=== PATIENT | male | born 1990 | race African-American/Black ===

== ENCOUNTER 2020-02-17 19:13 | Inpatient (IN) | payer MEDICARE ==
[~2020-02-17] VITALS: Ht 182.9 cm; Wt 83.6 kg
[2020-02-17] VITALS (7 sets, daily range): BP systolic 76–109; BP diastolic 47–62
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
--- NOTE | 2020-02-17 19:38 | NUR ---
1 ST UNIT OF O NEG BLOOD COMPLETED
--- NOTE | 2020-02-17 19:42 | NUR ---
SECOND UNIT OF O NEG BLOOD COMPLETED AT THIS TIME
--- NOTE | 2020-02-17 19:43 | NUR ---
PT TAKEN TO OR AT THIS TIME
[2020-02-17 21:07] LABS: UDS - AMPHET NEGATIVE QUAL (NEGATIVE); UDS - BARB NEGATIVE QUAL (NEGATIVE); UDS - BENZO NEGATIVE QUAL (NEGATIVE); UDS - COCAINE NEGATIVE QUAL (NEGATIVE); UDS - OPIATE NEGATIVE QUAL (NEGATIVE); UDS - PCP NEGATIVE QUAL (NEGATIVE); UDS - THC POSITIVE QUAL (NEGATIVE)
--- NOTE | 2020-02-17 23:33 | NUR ---
2333: XRAYS TAKEN TO CONFIRM INSTRAMENT COUNTS
[2020-02-18] VITALS (25 sets, daily range): BP systolic 95–145; BP diastolic 61–108; BMI 23.8; BMI 24.1
--- NOTE | 2020-02-18 | NUR ---
PT ARRIVED ON UNIT VIA BED, HOOKED TO MONITORS, ASSESSMENT COMPLETE, SEE FLOW SHEET, ALL PPP, VSS, WILL CON'T TO MONITOR
--- NOTE | 2020-02-18 00:14 | NUR ---
DR. MCKEON AT BEDSIDE, NEW ORDERS RECIEVED,
--- NOTE | 2020-02-18 01:07 | NUR ---
SISTER MO AT BEDSIDE, UPDATE GIVEN
[2020-02-18 04:21] LABS: BASOPHILS 0 % (0-2); EOSINOPHILS 0 % (0-7); HEMATOCRIT 44.6 % (42.0-54.0); IMMATURE GRANULOCYTES 0.2 % (0-5); MCH 30.4 pg (26.0-34.0); MCHC 33.6 g/dL (31.0-37.0); MCV 90.3 fL (80.0-100.0); MEAN PLATELET VOLUME 8.9 fL (7.4-10.4); MONOCYTES 12.1 % (2-11); NEUTROPHILS 81.7 % (40-80); PLATELET COUNT 168 10x3/uL (130-400); RBC 4.94 10x6/uL (4.20-6.10); RDW 13.9 % (11.5-14.5); WBC 12.2 10x3/uL (4.8-10.8)
[2020-02-18 04:36] LABS: CALC OSMOLALITY 291 mosm/kg (275-300); CALCIUM 7.7 mg/dL (8.5-10.1); CARBON DIOXIDE 31.2 mmol/L (21.0-32.0); CHLORIDE - SERUM 108 mmol/L (98-107); CREATININE - SERUM 1.1 mg/dL (0.6-1.3); GLUCOSE 115 mg/dL (74-106); POTASSIUM - SERUM 3.9 mmol/L (3.5-5.1); SODIUM 146 mmol/L (136-145); UREA NITROGEN 12 mg/dL (7-18); eGFR NON AFRICAN AMERICAN 84 mL/min (90-120)
[2020-02-19] VITALS (24 sets, daily range): BP systolic 86–128; BP diastolic 54–77; Ht 182.9 cm; Wt 83.6 kg
[2020-02-19 04:36] LABS: BASOPHILS 0.3 % (0-2); EOSINOPHILS 0.9 % (0-7); HEMATOCRIT 40.4 % (42.0-54.0); HEMOGLOBIN 13.4 g/dL (13.5-17.5); IMMATURE GRANULOCYTES 0.3 % (0-5); LYMPHOCYTES 14.5 % (15-50); MCH 30.7 pg (26.0-34.0); MCHC 33.2 g/dL (31.0-37.0); MEAN PLATELET VOLUME 9.4 fL (7.4-10.4); MONOCYTES 9.6 % (2-11); NEUTROPHILS 74.4 % (40-80); PLATELET COUNT 142 10x3/uL (130-400); RBC 4.36 10x6/uL (4.20-6.10); RDW 14.6 % (11.5-14.5); WBC 11.8 10x3/uL (4.8-10.8)
[2020-02-19 04:59] LABS: MCV 92.7 fL (80.0-100.0)
[2020-02-19 06:26] LABS: ALBUMIN 2.1 g/dL (3.4-5.0); ANION GAP 12.1 mmol/L (8-16); BILIRUBIN - TOTAL 1.17 mg/dL (0.2-1.3); CARBON DIOXIDE 26.5 mmol/L (21.0-32.0); MAGNESIUM - SERUM 1.6 mg/dL (1.8-2.4); POTASSIUM - SERUM 3.6 mmol/L (3.5-5.1); PROTEIN - SERUM 5.3 g/dL (6.4-8.2)
[2020-02-19 06:36] LABS: CREATININE - SERUM 1.5 mg/dL (0.6-1.3)
[2020-02-19 06:37] LABS: PHOSPHOROUS 1.5 mg/dL (2.5-4.9)
--- NOTE | 2020-02-19 07:42 | NUR ---
INITIATED MAG IVPB PER ELECTROLYTE REPLACEMENT PROTOCOL. PT WILL ALSO NEED PHOSPHOROUS CALLED LAB TO MAKE. SCDS IN PLACE AND TURNED ON. PT IS WARM AND HAS A TEMP OF 100.4 WILL CHECK FOR ANY TYLENOL AND TRY TO COOL PT OFF.
--- NOTE | 2020-02-19 07:45 | NUR ---
BEDSHIFT REPORTING COMPLETED. INTRODUCED MYSELF TO PT PRIMARY RN FOR TODAYS SHIFT. PT IS AWAKE WITH EYES WIDE OPEN BUT ON VENT AND IN WRIST RESTRAINTS. REASSURED PT THAT HE IS OKAY AND MY PLAN OF CARE WITH HIM TODAY ALONG WITH REASONING FOR ALL HIS TUBES/LINES. PT IS CALM AND COOPERATIVE. WILL REVIEW LABS, CHART AND ORDERS AND CPOC. NO IMMEDIATE NEEDS NOTED AT THIS TIME.
--- NOTE | 2020-02-19 09:00 | NUR ---
PT IN/OUT BEING AWAKE. SEDATION PER ORDERS. REPOSITIONED PT IN BED. VSS AND STILL BEING MONITERED. PTS FATHER CALLED AND WAS UPDATED. NO IMMEDIATE NEEDS NOTED AT THIS TIME. RESPIRATORY AT BEDSIDE FOR ORAL CARE. WILL CPOC.
--- NOTE | 2020-02-19 11:06 | NUR ---
PT AWAKE AND BECOMING AGITATED. PUSHING HIS FEET IN BED AND MAKING HIS COVERS FALL OFF. PT WILL COMMUNICATE WITH ME BY GESTURES BUT UNABLE TO GET OUT WHAT HE NEEDS OR WHY HE IS MOVING SO MUCH. INCREASED PROPOFOL DRIP BY 5MCG AND NOW ITS MAXED OUT. SUCTIONED SOME BLOODY THICK SPUTUM FROM MOUTH. REPOSITIONED PT IN BED. PT FALLING BACK ASLEEP. WILL CONTINUE TO MONITER.
--- NOTE | 2020-02-19 13:35 | NUR ---
PT IS NOW FEBRILE DESPITE ICE PACKS APPLIED. DISCUSSED WITH AT BEDSIDE AND CULTURES ARE BEING ORDERED ALONG WITH TYLENOL TO HELP REDUCE FEVER. PT AWAKE WITH EYES OPEN AND FIDGETING HIS LEGS ALL AROUND. EXPLAINED TO PT THE SITUATION AND HAD HIM KEEP HIS LEGS STILL. NO IMMEDIATE NEEDS NOTED A THIS TIME. WILL CTM.
--- NOTE | 2020-02-19 14:08 | NUR ---
OGT SUCTION TURNED OFF AFTER TYLENOL TREATMENT WILL RESUME IN 30MINS. PROVIDED PT WITH PRN DOSE OF VERSED HE IS STILL WIDE AWAKE AND CONSTANTLY MOVING KICKING HIS LEGS. PTS TEMP ALREADY DECREASING AND DOWN TO 100.2F. UPDATED PTS FATHER ON CONDITION. STILL AWAITING FOR CONSULT. PT RESTING QUIETLY IN BED WITH EYES CLOSED NOW. VSS AND BEING MONITERED. NO IMMEDIATE NEEDS NOTED AT THIS TIME. WILL CTM.
--- NOTE | 2020-02-19 16:09 | NUR ---
PTS REDRAW PHOS STILL SLIGHTLY LOW. ORDERED ANOTHER REPLACEMENT BAG PER ELECTROLYTE PROTOCOL AND WILL RECHECK VALUE IN THE AM.
--- NOTE | 2020-02-19 16:43 | NUR ---
FAMILY CALLED AGAIN REQUESTING UPDATE ABOUT ' PLAN. STILL WAITING ON HIM TO COME BY FOR CONSULT. WILL CPOC.
--- NOTE | 2020-02-19 17:45 | NUR ---
PAGED REGARDING PLAN OF CARE AND HE STATES NO NEED FOR SURGERY BULLET CAN REMAIN THERE. WILL UPDATE FAMILY AND NOTIFY PULMONOLOGY TO DISCUSS WEANING SEDATION FOR POSSIBLE EXTUBATION.
--- NOTE | 2020-02-19 18:22 | NUR ---
FENTANYL DRIP DOWN TO 250MCG/HR, PROPOFOL DRIP WEANED DOWN TO 65MCG/KG/MIN. PT IS SEDATED BUT AROUSES EASILY. VSS. NO IMMEDIATE NEEDS NOTED AT THIS TIME. WILL CPOC.
[2020-02-20] VITALS (24 sets, daily range): BP systolic 101–160; BP diastolic 64–96
[2020-02-20 04:09] LABS: BASOPHILS 0.1 % (0-2); EOSINOPHILS 1.7 % (0-7); HEMATOCRIT 33.8 % (42.0-54.0); HEMOGLOBIN 10.9 g/dL (13.5-17.5); IMMATURE GRANULOCYTES 0.1 % (0-5); LYMPHOCYTES 8.2 % (15-50); MCH 30.3 pg (26.0-34.0); MCHC 32.2 g/dL (31.0-37.0); MCV 93.9 fL (80.0-100.0); MEAN PLATELET VOLUME 8.9 fL (7.4-10.4); MONOCYTES 9.7 % (2-11); NEUTROPHILS 80.2 % (40-80); PLATELET COUNT 117 10x3/uL (130-400); RDW 14.1 % (11.5-14.5); WBC 10.9 10x3/uL (4.8-10.8)
[2020-02-20 04:24] LABS: CALC OSMOLALITY 281 mosm/kg (275-300); CALCIUM 6.9 mg/dL (8.5-10.1); CARBON DIOXIDE 24.5 mmol/L (21.0-32.0); CHLORIDE - SERUM 109 mmol/L (98-107); GLUCOSE 95 mg/dL (74-106); POTASSIUM - SERUM 3.3 mmol/L (3.5-5.1); SODIUM 142 mmol/L (136-145); UREA NITROGEN 9 mg/dL (7-18); eGFR NON AFRICAN AMERICAN > 90 mL/min (90-120)
--- NOTE | 2020-02-20 09:00 | NUR ---
UPDATED FATHER ON PHONE.
--- NOTE | 2020-02-20 12:30 | NUR ---
DR VILLAREAL HERE STOP DIPRIVAN START PRECEDEX. PT HR 145, BP 180/110. NOTIFIED DR VILLAREAL, PRECEDEX STOPPED AND PLACED BACK ON DIPRAVAN.
--- NOTE | 2020-02-20 13:30 | NUR ---
UPDATED SISTER ON CONDITION.
--- NOTE | 2020-02-20 14:00 | NUR ---
UPDATED FATHER ON CONDITION.
[2020-02-21] VITALS (24 sets, daily range): BP systolic 87–150; BP diastolic 47–999
--- NOTE | 2020-02-21 03:15 | NUR ---
PT FEBRILE AT BEGINNING OF SHIFT (02/19) IV FLUIDS CHILLED AND APAP GIVEN PER ORDERS. FEBRILE AGAIN NOW, CHILLED FLUIDS AGAIN AND PLACED ICE PACKS. WILL MONITOR.
[2020-02-21 05:49] LABS: BASOPHILS 0.1 % (0-2); EOSINOPHILS 3.4 % (0-7); HEMATOCRIT 31.7 % (42.0-54.0); HEMOGLOBIN 10.4 g/dL (13.5-17.5); IMMATURE GRANULOCYTES 0.3 % (0-5); LYMPHOCYTES 12.3 % (15-50); MCH 30.3 pg (26.0-34.0); MCHC 32.8 g/dL (31.0-37.0); MCV 92.4 fL (80.0-100.0); MEAN PLATELET VOLUME 9.7 fL (7.4-10.4); MONOCYTES 12.1 % (2-11); NEUTROPHILS 71.8 % (40-80); RBC 3.43 10x6/uL (4.20-6.10); RDW 13.8 % (11.5-14.5); WBC 10.1 10x3/uL (4.8-10.8)
[2020-02-21 05:50] LABS: CALC OSMOLALITY 275 mosm/kg (275-300); CALCIUM 7.6 mg/dL (8.5-10.1); CARBON DIOXIDE 25.1 mmol/L (21.0-32.0); CHLORIDE - SERUM 106 mmol/L (98-107); CREATININE - SERUM 0.8 mg/dL (0.6-1.3); GLUCOSE 94 mg/dL (74-106); POTASSIUM - SERUM 3.3 mmol/L (3.5-5.1); SODIUM 139 mmol/L (136-145); eGFR NON AFRICAN AMERICAN > 90 mL/min (90-120)
[2020-02-21 05:52] LABS: PLATELET COUNT 164 10x3/uL (130-400)
[2020-02-21 05:53] LABS: PHOSPHOROUS 1.5 mg/dL (2.5-4.9); UREA NITROGEN 6 mg/dL (7-18)
--- NOTE | 2020-02-21 10:05 | NUR ---
Nutrition follow-up: Intubated, sedated NPO x 5 days Propofol @ 31.2 ml/hr Wt: 188# No surgery per Dr. Quinn Recommend tube feeding of Pulmocare @ goal rate of 50 ml/hr RDN following.
--- NOTE | 2020-02-21 19:50 | NUR ---
PT SISTER CALLED, PASSWORD PROVIDED, UPDATE GIVEN.
[2020-02-22] VITALS (24 sets, daily range): BP systolic 86–157; BP diastolic 51–118
--- NOTE | 2020-02-22 | NUR ---
INFORMED PT'S NURSE DAVID RN OF [facility]
--- NOTE | 2020-02-22 00:34 | NUR ---
PT SISTER CALLED, PASSWORD PROVIDED, UPDATE GIVEN.
--- NOTE | 2020-02-22 06:11 | NUR ---
PULMOCARE INITIATED AT 10CC/HR PER MD ORDER.
[2020-02-22 06:22] LABS: CALC OSMOLALITY 275 mosm/kg (275-300); CALCIUM 7.7 mg/dL (8.5-10.1); CHLORIDE - SERUM 107 mmol/L (98-107); CREATININE - SERUM 0.9 mg/dL (0.6-1.3); GLUCOSE 97 mg/dL (74-106); POTASSIUM - SERUM 3.3 mmol/L (3.5-5.1); SODIUM 139 mmol/L (136-145); UREA NITROGEN 7 mg/dL (7-18); eGFR NON AFRICAN AMERICAN > 90 mL/min (90-120)
--- NOTE | 2020-02-22 08:51 | NUR ---
Nutrition follow-up: Recieved order from Dr. Oleary to start TPN; however, Dr. Galeas started Pulmocare TF @ 10 ml/hr with goal rate of 40 ml/hr. Flush 25 ml q hour Wt: 188# Spoke to POONAM Rodgers re: TPN order. Will clarify with doctor today. RDN following.
--- NOTE | 2020-02-22 09:30 | NUR ---
tf residule 250cc. stopped tf.
--- NOTE | 2020-02-22 15:10 | NUR ---
Nutrition consult: Received consult from Dr. Oleary to start TPN due to pt ont tolerating TF at this time. Chart reviewe Labs reviewed TPN ordered @ 60 ml/hr; pt with propofol RDN following.
--- NOTE | 2020-02-22 21:40 | NUR ---
PT SISTER CALLED, PASSWORD PROVIDED, UPDATE GIVEN.
--- NOTE | 2020-02-22 21:48 | NUR ---
DR MCKEON IN TO SEE PT, UPDATED REGARDING STATUS. NO NEW ORDERS RECEIVED.
[2020-02-23] VITALS (24 sets, daily range): BP systolic 92–130; BP diastolic 5–73
[2020-02-23 05:14] LABS: BASOPHILS 0.1 % (0-2); EOSINOPHILS 3.5 % (0-7); HEMATOCRIT 27.3 % (42.0-54.0); HEMOGLOBIN 8.9 g/dL (13.5-17.5); IMMATURE GRANULOCYTES 0.7 % (0-5); MCHC 32.6 g/dL (31.0-37.0); MCV 91.9 fL (80.0-100.0); MONOCYTES 12.8 % (2-11); NEUTROPHILS 72.9 % (40-80); PLATELET COUNT 234 10x3/uL (130-400); RBC 2.97 10x6/uL (4.20-6.10); RDW 13.5 % (11.5-14.5); WBC 8.6 10x3/uL (4.8-10.8)
[2020-02-23 06:05] LABS: CALC OSMOLALITY 283 mosm/kg (275-300); CALCIUM 7.7 mg/dL (8.5-10.1); CARBON DIOXIDE 25.5 mmol/L (21.0-32.0); CHLORIDE - SERUM 108 mmol/L (98-107); CREATININE - SERUM 0.9 mg/dL (0.6-1.3); GLUCOSE 136 mg/dL (74-106); MAGNESIUM - SERUM 2.1 mg/dL (1.8-2.4); POTASSIUM - SERUM 3.4 mmol/L (3.5-5.1); SODIUM 142 mmol/L (136-145); UREA NITROGEN 9 mg/dL (7-18); eGFR NON AFRICAN AMERICAN > 90 mL/min (90-120)
--- NOTE | 2020-02-23 07:54 | NUR ---
Nutrition follow-up: Chart reviewed TPN @ 60 ml/hr Labs reviewed; PO4 still low and TPN adjusted RDN following.
--- NOTE | 2020-02-23 16:33 | NUR ---
PT BATHED AND LINENS CHANGED. DSNGS TO CT CHANGED.
--- NOTE | 2020-02-23 23:04 | NUR ---
PT SISTER CALLED, PASSWORD PROVIDED, UPDATE GIVEN AND ALL QUESTIONS ANSWERED.
[2020-02-24] VITALS (24 sets, daily range): BP systolic 93–129; BP diastolic 56–108
[2020-02-24 05:45] LABS: BASOPHILS 0.2 % (0-2); EOSINOPHILS 4.5 % (0-7); HEMOGLOBIN 9.5 g/dL (13.5-17.5); IMMATURE GRANULOCYTES 1.9 % (0-5); MCHC 32.8 g/dL (31.0-37.0); MCV 91.5 fL (80.0-100.0); MONOCYTES 13.3 % (2-11); NEUTROPHILS 71.1 % (40-80); RBC 3.17 10x6/uL (4.20-6.10); RDW 13.7 % (11.5-14.5); WBC 9.6 10x3/uL (4.8-10.8)
[2020-02-24 05:52] LABS: PLATELET COUNT 339 10x3/uL (130-400)
[2020-02-24 06:04] LABS: CALC OSMOLALITY 278 mosm/kg (275-300); CALCIUM 7.7 mg/dL (8.5-10.1); CARBON DIOXIDE 26.6 mmol/L (21.0-32.0); CHLORIDE - SERUM 109 mmol/L (98-107); CREATININE - SERUM 0.9 mg/dL (0.6-1.3); GLUCOSE 124 mg/dL (74-106); MAGNESIUM - SERUM 1.9 mg/dL (1.8-2.4); PHOSPHOROUS 3.1 mg/dL (2.5-4.9); POTASSIUM - SERUM 3.5 mmol/L (3.5-5.1); SODIUM 140 mmol/L (136-145); UREA NITROGEN 10 mg/dL (7-18); eGFR NON AFRICAN AMERICAN > 90 mL/min (90-120)
--- NOTE | 2020-02-24 08:12 | NUR ---
Nutrition follow-up: Pt intubated, sedation off Labs reviewed Will continue current TPN @ 60 ml/hr RDN following.
--- NOTE | 2020-02-24 12:02 | NUR ---
REPORT GIVEN TO PACO RN. NURSE ALSO NOTIFIED THAT OGT WAS NOT FUNCTIONING AND WAS UNABLE TO GIVE ROBITUSSIN AT THIS TIME. PATIENT IS IN GOOD STABLE CONDITION OF TIME OF HANDOFF.
[2020-02-25] VITALS (24 sets, daily range): BP systolic 97–139; BP diastolic 49–69
[2020-02-25 05:07] LABS: CALC OSMOLALITY 278 mosm/kg (275-300); CALCIUM 7.9 mg/dL (8.5-10.1); CARBON DIOXIDE 26.6 mmol/L (21.0-32.0); CHLORIDE - SERUM 108 mmol/L (98-107); CREATININE - SERUM 0.8 mg/dL (0.6-1.3); GLUCOSE 120 mg/dL (74-106); MAGNESIUM - SERUM 1.8 mg/dL (1.8-2.4); PHOSPHOROUS 3.4 mg/dL (2.5-4.9); POTASSIUM - SERUM 3.9 mmol/L (3.5-5.1); SODIUM 139 mmol/L (136-145); UREA NITROGEN 12 mg/dL (7-18); eGFR NON AFRICAN AMERICAN > 90 mL/min (90-120)
[2020-02-25 08:11] LABS: HEMATOCRIT 32.4 % (42.0-54.0); HEMOGLOBIN 10.9 g/dL (13.5-17.5); MCH 30.9 pg (26.0-34.0); MCHC 33.6 g/dL (31.0-37.0); MCV 91.8 fL (80.0-100.0); MEAN PLATELET VOLUME 9.8 fL (7.4-10.4); PLATELET COUNT 389 10x3/uL (130-400); RBC 3.53 10x6/uL (4.20-6.10); RDW 13.2 % (11.5-14.5); WBC 14.1 10x3/uL (4.8-10.8)
--- NOTE | 2020-02-25 09:47 | NUR ---
Nutrition follow-up: Chart reviewed Labs reviewed Pt remains intubated, sedated with propofol @ 31.2 ml/hr TPN @ 60 ml/hr Will continue with current TPN formula RDN following.
--- NOTE | 2020-02-25 10:42 | NUR ---
NOTED PTS OGT IS CLOGGED OR KINKED. UNABLE TO FLUSH, UNABLE TO PASS AIR INTO OGT TO ASSESS PLACEMENT. WILL NOTIFY SURGERY.
--- NOTE | 2020-02-25 10:48 | NUR ---
DR CHIN NOTIFIED OF CLOGGED/CLAMPED OGT.
--- NOTE | 2020-02-25 10:51 | NUR ---
PER DR CHIN, THIS IS DR MCKEON'S PT. DR MCKEON PAGED.
--- NOTE | 2020-02-25 11:03 | NUR ---
PER DR MCKEON, OKAY TO PULL AND REPLACE OGT.
--- NOTE | 2020-02-25 11:29 | NUR ---
PT ON CPAP TRIAL, RR 30 TIDAL VOLUME 320. WILL NOTIFY RESPIRATORY THERAPY.
[2020-02-25 11:34] LABS: EOSINOPHILS 2 % (0-7); LYMPHOCYTES 17 % (15-50); MONOCYTES 12 % (2-11); NEUTROPHILS 62 % (40-80); PLATELET ESTIMATE NORMAL
[2020-02-25 11:35] LABS: ANISOCYTOSIS 1+; POLYCHROMASIA OCC
--- NOTE | 2020-02-25 13:16 | NUR ---
AWAKE ON VENT WITH EYES CLOSED, PT FOLLOWING COMMANDS. NOT APPEARING DISTRESSED, HOWEVER RESPIRATIONS STILL 35, TIDAL VOLUME 441. PT ENCOURAGED TO CONTINUE TO BE CALM AND BREATHE. PT NODDED HEAD. VSS. NO ACUTE DISTRESS NOTED. WILL CONTINUE PLAN OF CARE.
--- NOTE | 2020-02-25 13:50 | NUR ---
PT NOTED AGGITATED AT THIS TIME, ATTEMPTING TO PULL AT ETT, KICKING, COUGHING. IN ADDITION RESPIRATIONS STILL IN 30S. BP PER A LINE UP TO 168. PLACED BACK ON SEDATION, CPAP TRIAL CHANGED TO AC ON VENT. PT NOW CALM ON SEDATION. WILL CONTINUE TO OBSERVE.
--- NOTE | 2020-02-25 14:22 | NUR ---
OGT REMOVED AND NEW ONE PLACED, 16F. WILL OBTAIN CHEST XR TO VERIFY PLACEMENT.
--- NOTE | 2020-02-25 14:47 | NUR ---
SPOKE WITH PTS FAMILY. UPDATES PROVIDED.
--- NOTE | 2020-02-25 17:07 | NUR ---
DR MCKEON ROUNDED ON PT, NO NEW ORDERS RECIEVED.
--- NOTE | 2020-02-25 19:50 | NUR ---
FAMILY CALLED AND PROVIDED PT CALL IN CODE, PT UPDATE PROVIDED AND QUESTIONS ANSWERED.
[2020-02-26] VITALS (24 sets, daily range): BP systolic 92–162; BP diastolic 50–93
[2020-02-26 05:20] LABS: CALC OSMOLALITY 279 mosm/kg (275-300); CALCIUM 7.8 mg/dL (8.5-10.1); CARBON DIOXIDE 27.7 mmol/L (21.0-32.0); CHLORIDE - SERUM 105 mmol/L (98-107); CREATININE - SERUM 0.9 mg/dL (0.6-1.3); PHOSPHOROUS 3.9 mg/dL (2.5-4.9); POTASSIUM - SERUM 4.3 mmol/L (3.5-5.1); SODIUM 137 mmol/L (136-145); UREA NITROGEN 12 mg/dL (7-18); eGFR NON AFRICAN AMERICAN > 90 mL/min (90-120)
[2020-02-26 05:42] LABS: GLUCOSE 205 mg/dL (74-106)
--- NOTE | 2020-02-26 06:26 | NUR ---
LINEN CHANGE AND PARTIAL BATH PROVIDED AT THIS TIME
--- NOTE | 2020-02-26 07:00 | NUR ---
REPORT RECEIVED. ASSESSMENT COMPLETE PER FLOW SHEET. VSS. PT RESTING COMFROTABLY WILL CONTINUE TOMONITOR
--- NOTE | 2020-02-26 07:46 | NUR ---
Nutrition follow-up: Chart reviewed Labs reviewed TPN infusing @ 60 ml/hr Will continue current TPN formula RDN following.
--- NOTE | 2020-02-26 09:00 | NUR ---
RT REQUEST TO PAGE DR CHILDERS TO GIVE UPDATE REGAURDING PT STATUS, DR CHILDERS PAGED GIVEN UPDATE QUESTIONS REGAURDING PT VENT STATS, RT UNAVAILABLE AT THIS TIME. DR CHILDERS HUNG UP. RT PAGED GIVEN UPDATE. STATED WOULD BE BACK IN A MINUTE.
--- NOTE | 2020-02-26 14:00 | NUR ---
ZULEYMA BARTH AT BEDSIDE CARDIO CONSULT ADM. HR 160 NEW ORDERS RECEIVED
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
--- NOTE | 2020-02-26 20:54 | NUR ---
DR LISETH FARAH, UPDATED ON PT STATUS.
[2020-02-27] VITALS (24 sets, daily range): BP systolic 107–165; BP diastolic 60–100
[2020-02-27 06:54] LABS: BASOPHILS 0.3 % (0-2); EOSINOPHILS 0.7 % (0-7); HEMATOCRIT 26.9 % (42.0-54.0); HEMOGLOBIN 8.7 g/dL (13.5-17.5); IMMATURE GRANULOCYTES 1.3 % (0-5); LYMPHOCYTES 11.7 % (15-50); MCH 29.5 pg (26.0-34.0); MCHC 32.3 g/dL (31.0-37.0); MCV 91.2 fL (80.0-100.0); MEAN PLATELET VOLUME 9.1 fL (7.4-10.4); MONOCYTES 13.1 % (2-11); NEUTROPHILS 72.9 % (40-80); PLATELET COUNT 549 10x3/uL (130-400); RBC 2.95 10x6/uL (4.20-6.10); WBC 14.4 10x3/uL (4.8-10.8)
[2020-02-27 07:26] LABS: CALC OSMOLALITY 273 mosm/kg (275-300); CALCIUM 8.3 mg/dL (8.5-10.1); CHLORIDE - SERUM 100 mmol/L (98-107); CREATININE - SERUM 0.8 mg/dL (0.6-1.3); PHOSPHOROUS 4.1 mg/dL (2.5-4.9); POTASSIUM - SERUM 3.8 mmol/L (3.5-5.1); SODIUM 136 mmol/L (136-145); UREA NITROGEN 15 mg/dL (7-18); eGFR NON AFRICAN AMERICAN > 90 mL/min (90-120)
[2020-02-27 07:30] LABS: GLUCOSE 121 mg/dL (74-106)
--- NOTE | 2020-02-27 09:30 | NUR ---
Nutrition follow-up: Pt extubated; regular mechanical soft diet started with pt tolerating at this time per RN. TPN continues @ 60 ml/hr; however, will discontinue today Labs reviewed Wt: 198# Pharmacy notified to discontinue TPN RDN following.
--- NOTE | 2020-02-27 09:56 | NUR ---
ANGELINA D/C PER DR MCKEON. PT VERY CONFUSED AND PARANOID. WILL START ORAL PAIN MEDICATION FOR PAIN. EXPLAINED TO PT.
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
--- NOTE | 2020-02-27 11:55 | NUR ---
ATTEMPTED TO GIVE PT MUCINEX. PT SPIT MEDICATION ONCE IN MOUTH THEN ASKED IF I WAS GETTING HIM ANOTHER. DRIED PT OFF. APPLIED ECG LEADS. ATTEMPTED TO EXPLAIN TO PT THAT WE WERE TRYING TO MONITOR HIS HEART AND THAT THE MEDICATION WAS FOR HIS COUGH AND DRAINAGE. PT STILL VERY CONFUSED AND THINKS THAT WE ARE TRYING TO KILL HIM. WILL CONTINUE TO MONITOR.
--- NOTE | 2020-02-27 14:50 | NUR ---
BLOOD DRAWN FROM CENTRAL LINE. PT TRIED TO PUSH ME AWAY. EXPLAINED TO HIM WHY I NEEDED TO GET BLOOD. SHIRT IRONER PRESENT.
[2020-02-27 14:58] LABS: HEMATOCRIT 29.3 % (42.0-54.0); HEMOGLOBIN 9.7 g/dL (13.5-17.5)
--- NOTE | 2020-02-27 18:14 | NUR ---
SPOKE WITH PT AUNT ABOUT ONE VISITOR AT A DAY THAT HAD TO BE APPROVED BY ADMIN. FAMILY MEMBER WAS NOT HAPPY AND EXPLAIN THE REASONWE CAN PNLY HAVE ONE VISITOR A DAY.
[2020-02-28] VITALS (24 sets, daily range): BP systolic 118–151; BP diastolic 70–103
[2020-02-28 06:17] LABS: BASOPHILS 0.2 % (0-2); EOSINOPHILS 0.7 % (0-7); HEMATOCRIT 29.4 % (42.0-54.0); HEMOGLOBIN 9.5 g/dL (13.5-17.5); IMMATURE GRANULOCYTES 1.1 % (0-5); LYMPHOCYTES 8.6 % (15-50); MCH 29.5 pg (26.0-34.0); MCHC 32.3 g/dL (31.0-37.0); MCV 91.3 fL (80.0-100.0); MEAN PLATELET VOLUME 8.8 fL (7.4-10.4); MONOCYTES 13.4 % (2-11); PLATELET COUNT 650 10x3/uL (130-400); RBC 3.22 10x6/uL (4.20-6.10); WBC 15.7 10x3/uL (4.8-10.8)
[2020-02-28 06:45] LABS: ALBUMIN 2.2 g/dL (3.4-5.0); ALKALINE PHOSPHATASE 160 U/L (30-120); ALT (SGPT) 359 U/L (10-68); BILIRUBIN - TOTAL 1.29 mg/dL (0.2-1.3); CALC OSMOLALITY 274 mosm/kg (275-300); CALCIUM 8.5 mg/dL (8.5-10.1); CARBON DIOXIDE 28.6 mmol/L (21.0-32.0); CHLORIDE - SERUM 101 mmol/L (98-107); CREATININE - SERUM 0.8 mg/dL (0.6-1.3); GLUCOSE 107 mg/dL (74-106); POTASSIUM - SERUM 3.8 mmol/L (3.5-5.1); PROTEIN - SERUM 7.2 g/dL (6.4-8.2); SODIUM 137 mmol/L (136-145); UREA NITROGEN 16 mg/dL (7-18); eGFR NON AFRICAN AMERICAN > 90 mL/min (90-120)
--- NOTE | 2020-02-28 08:35 | NUR ---
WAS ABLE TO TALK PT INTO TAKING HIS LOVENOX INJECTION TODAY WITH FAMILY ON THE PHONE TRYING TO HELP ME. PT REFUSING TO EAT BREAKFAST. CONTINUES TO BE CONVINCED THAT HE'S DYING AND THAT WE'RE TRYING TO KILL HIM. NOW ALSO BELIEVES HE HAS COVID. EXPLAINED TO PT THAT HE DOES NOT HAVE COVID. WILL CONTINUE TO MONITOR.
--- NOTE | 2020-02-28 09:46 | NUR ---
Nutrition follow-up: Pt awake, aggitated, filming staff with iphone Diet: regular mechanical soft PO intake erratic at meals Labs reviewed RDN following.
--- NOTE | 2020-02-28 10:54 | NUR ---
OT AND PT WORKED WITH PT. TOOK A LOT OF ENCOURAGING. SAT PT UP ON THE SIDE OF THE BED. PT HAD SMALL INC BOWEL EPISODE. CLEANED UP. REPOSITIONED BACK IN BED WITH THERAPY.
--- NOTE | 2020-02-28 11:40 | NUR ---
PT SPIT OUT FLORANEX. NOW THINKS WE ARE GOING TO "CUT OFF HIS LEGS." ASSURED HIM THAT WE WERE NOT. PT UNCOOPERATIVE AT THIS TIME.
--- NOTE | 2020-02-28 16:12 | NUR ---
OT NOTE: PT CONFUSED AND PARANOID. PT REQUIRED MAX A X2 FOR SUPINE TO SIT. PT COMPLETED EOB SITTING BALANCE WITH SBA. PT COMPLETED SIT TO STAND WITH MIN A X2 FOR INCREASED STRENGTH. [id number] THANK YOU,WILTON DRUMMOND
--- NOTE | 2020-02-28 17:04 | NUR ---
ASSISTED PT WITH DINNER. PT COOPERATIVE. ATE ALL OF HIS COBBLER. PLACED ON BEDPAN BECAUSE PT STATED HE NEEDED TO HAVE A BM. CALL LIGHT LEFT IN HIS HAND TO CALL WHEN HE'S DONE.
--- NOTE | 2020-02-28 17:45 | NUR ---
PT HAD BM ON BEDPAN. SOFT, SEMI FORMED. PT CLEANED. STARTED TO DOZE OFF ONCE POSITIONED IN BED. WILL CONTINUE TO MONITOR.
--- NOTE | 2020-02-28 19:24 | NUR ---
BILATERAL CHEST TUBES PULLED BY DR MCKEON. PT TOLERATED WELL. REPOSITIONED.
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
[2020-02-29] VITALS (23 sets, daily range): BP systolic 18–173; BP diastolic 64–101
[2020-02-29 03:59] LABS: BASOPHILS 0.4 % (0-2); HEMATOCRIT 28.7 % (42.0-54.0); HEMOGLOBIN 9.4 g/dL (13.5-17.5); IMMATURE GRANULOCYTES 1.1 % (0-5); LYMPHOCYTES 11.5 % (15-50); MCH 30.1 pg (26.0-34.0); MCHC 32.8 g/dL (31.0-37.0); MEAN PLATELET VOLUME 8.8 fL (7.4-10.4); MONOCYTES 17.6 % (2-11); NEUTROPHILS 67.4 % (40-80); PLATELET COUNT 744 10x3/uL (130-400); RBC 3.12 10x6/uL (4.20-6.10); RDW 14.1 % (11.5-14.5)
[2020-02-29 04:23] LABS: WBC 11.4 10x3/uL (4.8-10.8)
[2020-02-29 04:38] LABS: ALBUMIN 2.1 g/dL (3.4-5.0); ALKALINE PHOSPHATASE 150 U/L (30-120); ALT (SGPT) 279 U/L (10-68); BILIRUBIN - TOTAL 0.88 mg/dL (0.2-1.3); CALC OSMOLALITY 275 mosm/kg (275-300); CALCIUM 8.3 mg/dL (8.5-10.1); CARBON DIOXIDE 29.6 mmol/L (21.0-32.0); CHLORIDE - SERUM 102 mmol/L (98-107); GLUCOSE 92 mg/dL (74-106); POTASSIUM - SERUM 3.7 mmol/L (3.5-5.1); PROTEIN - SERUM 6.9 g/dL (6.4-8.2); SODIUM 137 mmol/L (136-145); UREA NITROGEN 17 mg/dL (7-18)
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
[2020-02-29 04:43] LABS: CREATININE - SERUM 1.1 mg/dL (0.6-1.3); eGFR NON AFRICAN AMERICAN 84 mL/min (90-120)
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
--- NOTE | 2020-02-29 11:28 | NUR ---
DR WYATT HERE TO SEE PT.
--- NOTE | 2020-02-29 11:42 | NUR ---
SPOKE WITH PTS FAMILY, UPDATES PROVIDED.
--- NOTE | 2020-02-29 11:47 | NUR ---
PHYSICAL THERAPY CONSULT ORDERED PER DR WYATT.
--- NOTE | 2020-02-29 14:13 | NUR ---
PT NOTED INCONTINENT BOWEL MOVEMENT, SOFT BROWN. NOTED BOWEL MOVEMENT HAS COVERED PTS RT GROIN CVL AND A LINE. PLACED 20G IV TO LT AND RT FOREARMS. WILL CALL PRIMARY PHYSICIAN TO SEE IF OKAY TO DC CVL AND A LINE.
--- NOTE | 2020-02-29 14:21 | NUR ---
PER DR MCKEON, DC RT GROIN A LINE AND RT GROIN CVL.
--- NOTE | 2020-02-29 15:22 | NUR ---
RT GROIN CVL AND A LINE DRESSINGS CHANGED AFTER SUITURES DCD. PRESSURE APPLIED TO EACH SITE FOR 5 MIN AND PRESSURE DRESSING APPLIED TO SITE. NO S/S BLEEDING, HEMATOMA, EDEMA NOTED TO SITE. ALSO RT AND LT DCD CHEST TUBE DRESSING SITES CHANGED, SITES WDL. CHG BATH PROVIDED. TOTAL LINEN CHANGE PROVIDED. RAJPUT CARE PROVIDED. VSS. WILL CONTINUE PLAN OF CARE.
--- NOTE | 2020-02-29 16:21 | NUR ---
PER DR WYATT, OKAY TO CHANGE FROM CARDIZEM GTT AT 5 IV TO 30MG TID. ALSO STATED TO SEE IF CARDIOLOGY WANTS TO DO ANYTHING DIFFERENT REGARDING THIS FOR PRN SINCE PTS HEART RATE IS TRENDING UP TO 122 SIN[address] TACH. CARDIOLOGY HAS BEEN PAGED, WAITING FOR CALLBACK.
--- NOTE | 2020-02-29 17:23 | NUR ---
PT AWAKE IN BED AT THIS TIME TALKING TO THE WALL. PT CONTINUES TO SPEAK OUT LOUD WHETHER A PERSON IS IN THE ROOM, OR UNLESS HE IS ALONE. ATTEMPTED TO REORIENTATE PT. WILL CONTINUE TO OBSERVE.
--- NOTE | 2020-02-29 17:43 | NUR ---
SPOKE WITH PTS FAMILY, UPDATES PROVIDED.
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
--- NOTE | 2020-02-29 19:14 | NUR ---
RAJPUT DCD, CATHETER TIP INTACT.
--- NOTE | 2020-02-29 23:50 | NUR ---
SEE NEURO FOCUSED ASSESSMENT FLOWSHEET FOR DETAILS. PT AROUSES TO VOICE, DISORIENTED TO TIME ONLY, ABLE TO FOLLOW COMMANDS AND ANSWER QUESTIONS IN A CALM MANNER, REORIENTED PT AND ASSURED OF SAFETY-VERBALIZES UNDERSTANDING.
[2020-03-01] VITALS (24 sets, daily range): BP systolic 98–154; BP diastolic 59–99
--- NOTE | 2020-03-01 00:56 | NUR ---
PT SISTER, [place] CALLED, PASSWORD PROVIDED, UPDATE GIVEN.
[2020-03-01 04:18] LABS: BASOPHILS 0.4 % (0-2); HEMATOCRIT 29.8 % (42.0-54.0); HEMOGLOBIN 9.7 g/dL (13.5-17.5); IMMATURE GRANULOCYTES 0.8 % (0-5); LYMPHOCYTES 12.9 % (15-50); MCH 29.8 pg (26.0-34.0); MCHC 32.6 g/dL (31.0-37.0); MCV 91.7 fL (80.0-100.0); MEAN PLATELET VOLUME 8.6 fL (7.4-10.4); MONOCYTES 18.2 % (2-11); NEUTROPHILS 66.7 % (40-80); PLATELET COUNT 729 10x3/uL (130-400); RBC 3.25 10x6/uL (4.20-6.10); RDW 13.7 % (11.5-14.5); WBC 10.2 10x3/uL (4.8-10.8)
[2020-03-01 04:29] LABS: ALBUMIN 2.2 g/dL (3.4-5.0); ALKALINE PHOSPHATASE 142 U/L (30-120); ALT (SGPT) 214 U/L (10-68); CALC OSMOLALITY 274 mosm/kg (275-300); CALCIUM 8.4 mg/dL (8.5-10.1); CARBON DIOXIDE 27.9 mmol/L (21.0-32.0); CHLORIDE - SERUM 101 mmol/L (98-107); CREATININE - SERUM 1.1 mg/dL (0.6-1.3); GLUCOSE 111 mg/dL (74-106); POTASSIUM - SERUM 3.7 mmol/L (3.5-5.1); PROTEIN - SERUM 6.8 g/dL (6.4-8.2); SODIUM 136 mmol/L (136-145); UREA NITROGEN 19 mg/dL (7-18); eGFR NON AFRICAN AMERICAN 84 mL/min (90-120)
--- NOTE | 2020-03-01 04:50 | NUR ---
CHG BATH AND COMPLETE LINEN CHANGE DONE, PT ORIENTED X 4, AWAKE AND ALERT, VERY COOPERATIVE AND ABLE TO ASSIST INDEPENDENTLY WITH CLEANING AND TURNING. BED LOW, ALARM ON, CALL LIGHT IN REACH-REORIENTED REGARDING FALL PRECAUTIONS AND CALL LIGHT, VERBALIZES UNDERSTANDING. VSS.
--- NOTE | 2020-03-01 05:40 | NUR ---
AM LABS REVIEWED, NOTHING TO TREAT PER ELECTROLYTE PROTOCOL, PT RESTING IN BED WITH EYES CLOSED, VSS, CONT TO MONITOR.
--- NOTE | 2020-03-01 06:27 | NUR ---
ATTEMPTED TO CALL PT SISTER, [place] TO UPDATE REGARDING PT. LEFT VOICEMAIL MESSAGE WITH CALL BACK NUMBER.
--- NOTE | 2020-03-01 11:11 | NUR ---
CONTINENT BOWEL MOVEMENT NOTED. PT PROVIDED OWN MILLA CARE, AND BATHED SELF. VSS. WILL CONTINUE PLAN OF CARE.
--- NOTE | 2020-03-01 11:59 | PN ---
PATIENT:REBECCA GREENBERG MEDICAL RECORD: [id number] LOCATION:D.ICU [facility].230 ADMISSION DATE: 02/17/20 PROGRESS NOTE DATE OF SERVICE: 02/29/2020 SUBJECTIVE: The patient's case was discussed with staff. He has no new complaint. OBJECTIVE: The patient is not oriented. He is still mumbling, but less agitated and disorganized than he was yesterday. ASSESSMENT: Delirium. PLAN: The patient's scheduled medications have been reviewed and will be maintained. He is showing improvement. TRANSINT:[id number] Voice Confirmation ID: [id number] DOCUMENT ID: [id number] ANDREEA CERDA MD at 1159 CC: [id number] DICTATION DATE: 02/29/20 1418 NEW ACCOUNTS CLERK: 02/29/20 2151 ADM IN [facility] [id number] [place] [address]
--- NOTE | 2020-03-01 14:50 | NUR ---
PT CALM IN ROOM AT THIS TIME CHANGING BED LINENS AND PROVIDING SELF BATH. PT DENIES ANY NEEDS. VSS. WILL CONTINUE PLAN OF CARE.
--- NOTE | 2020-03-01 17:11 | NUR ---
SITTING UP IN BED EATING SUPPER AT THIS TIME. VSS. NO ACUTE DISTRESS NOTED. WILL CONTINUE PLAN OF CARE.
--- NOTE | 2020-03-01 19:58 | NUR ---
PT C/O GENERALIZED PAIN 6/10 ON VPS, PRN PO NORCO ADMINISTERED PER PT REQUEST/MD ORDER. WILL MONITOR FOR DESIRED EFFECT.
[2020-03-02] VITALS (7 sets, daily range): BP systolic 100–128; BP diastolic 55–92
[2020-03-02 04:44] LABS: BASOPHILS 0.5 % (0-2); EOSINOPHILS 3.2 % (0-7); HEMATOCRIT 30.4 % (42.0-54.0); HEMOGLOBIN 9.9 g/dL (13.5-17.5); IMMATURE GRANULOCYTES 1.1 % (0-5); LYMPHOCYTES 21.7 % (15-50); MCH 29.6 pg (26.0-34.0); MCHC 32.6 g/dL (31.0-37.0); MCV 90.7 fL (80.0-100.0); MEAN PLATELET VOLUME 8.6 fL (7.4-10.4); MONOCYTES 12.9 % (2-11); NEUTROPHILS 60.6 % (40-80); PLATELET COUNT 856 10x3/uL (130-400); RBC 3.35 10x6/uL (4.20-6.10); RDW 13.6 % (11.5-14.5); WBC 9.3 10x3/uL (4.8-10.8)
--- NOTE | 2020-03-02 05:03 | NUR ---
PT C/O GENERALIZED PAIN 7/10 ON VPS, PRN PO NORCO 10/325MG ADMINISTERED PER MD ORDER/PT REQUEST.
[2020-03-02 05:04] LABS: ALBUMIN 2.3 g/dL (3.4-5.0); ALKALINE PHOSPHATASE 130 U/L (30-120); ALT (SGPT) 205 U/L (10-68); BILIRUBIN - TOTAL 0.48 mg/dL (0.2-1.3); CALC OSMOLALITY 277 mosm/kg (275-300); CALCIUM 8.5 mg/dL (8.5-10.1); CARBON DIOXIDE 28.7 mmol/L (21.0-32.0); CHLORIDE - SERUM 103 mmol/L (98-107); GLUCOSE 83 mg/dL (74-106); POTASSIUM - SERUM 3.9 mmol/L (3.5-5.1); SODIUM 139 mmol/L (136-145); UREA NITROGEN 16 mg/dL (7-18); eGFR NON AFRICAN AMERICAN > 90 mL/min (90-120)
--- NOTE | 2020-03-02 05:29 | NUR ---
AM LABS REVIEWED, NOTHING TO TREAT PER ELECTROLYTE PROTOCOL.
--- NOTE | 2020-03-02 09:00 | PN ---
PATIENT:REBECCA GREENBERG MEDICAL RECORD: [id number] LOCATION:[facility] ADMISSION DATE: 02/17/20 PROGRESS NOTE DATE OF SERVICE: 03/01/2020 SUBJECTIVE: The patient's case was discussed with staff. He has no new complaint. OBJECTIVE: The patient has significantly improved. He is much calmer and able to interact with me in a much more rational and appropriate way. He denies any current hallucinations as well as any thoughts of harming others or himself. ASSESSMENT: Paranoid schizophrenia. PLAN: The patient's sister has given some very helpful and useful information. The patient has a long psychiatric history and has been diagnosed with paranoid schizophrenia. He has been hospitalized numerous times in [place] and has had extensive outpatient treatment for this illness. He has also served time in the [employer] in [place], but is now released and not on any kind of monitoring or parole or probation, at least by his account. I am going to treat him with a higher dose of the Geodon and at this point, I am not requiring inpatient psychiatric care. He wants to go home with his sister. He will go to outpatient appointments, but he is declining inpatient care. I think additional psychiatric inpatient care would be preferable to stabilize him emotionally, but he does not currently meet criteria for an involuntary commitment. TRANSINT:[id number] Voice Confirmation ID: [id number] DOCUMENT ID: [id number] ANDREEA CERDA MD at 0900 CC: [id number] DICTATION DATE: 03/01/20 1258 FIRE EATER: 03/01/202126 ADM IN [facility] [address] [place] [address]
--- NOTE | 2020-03-02 10:56 | NUR ---
Nutrition follow-up: Diet: Regular mechanical soft Pt is tolerating po diet at this time +BM Labs reviewed Wt: 184# RDN following.
[2020-03-02] MEDS ORDERED: CARDIZEM30 MG PO (12:51)
[2020-03-02] MEDS ORDERED: HYDROCODON-ACE1 EA10 PO (12:51)
[2020-03-02] MEDS ORDERED: Tylenol NG (12:51)
[2020-03-02] MEDS ORDERED: ATIVAN1 MG PO (12:51)
[2020-03-02] MEDS ORDERED: GEODON20 MG PO (12:52)
[2020-03-02] MEDS ORDERED: GEODON40 MG PO (12:52)
== END 2020-03-02 14:02 | disposition home or self-care (01) | DRG 163 ==
LOC: D.ER → D.OPS 19:49 → D.ICU 23:27
PROVIDERS: Family Medicine; Internal Medicine Pulmonary Disease; ADMIT Surgery; ATTEND Surgery
PROC: 0WJG0ZZ Inspection of Peritoneal Cavity, Open Approach (ICD-10-PCS; 2020-02-17)
PROC: 0W9930Z Drainage of Right Pleural Cavity with Drainage Device, Percutaneous Approach (ICD-10-PCS; 2020-02-17)
PROC: 5A1955Z Respiratory Ventilation, Greater than 96 Consecutive Hours (ICD-10-PCS; 2020-02-17)
PROC: 0BTF0ZZ Resection of Right Lower Lung Lobe, Open Approach (ICD-10-PCS; principal; 2020-02-17 19:59)
PROC: 0P9 Upper Bones, Drainage (ICD-10-PCS; 2020-02-17 19:59)
DX: S27.2XXA Traumatic hemopneumothorax, initial encounter (principal); J96.90 Respiratory failure, unspecified, unspecified whether with hypoxia or hypercapnia; J15.6 Pneumonia due to other Gram-negative bacteria; S21.349A Puncture wound with foreign body of unspecified front wall of thorax with penetration into thoracic cavity, initial encounter; S27.898A Other injury of other specified intrathoracic organs, initial encounter; J98.11 Atelectasis; N17.9 Acute kidney failure, unspecified; F20.0 Paranoid schizophrenia; S27.391A Other injuries of lung, unilateral, initial encounter; K56.7 Ileus, unspecified; J90 Pleural effusion, not elsewhere classified; X93.XXXA Assault by handgun discharge, initial encounter; S24.2XXA Injury of nerve root of thoracic spine, initial encounter; E87.6 Hypokalemia; E83.51 Hypocalcemia; I10 Essential (primary) hypertension; E88.09 Other disorders of plasma-protein metabolism, not elsewhere classified; R00.0 Tachycardia, unspecified; F12.10 Cannabis abuse, uncomplicated

== ENCOUNTER 2020-09-05 04:22 | Emergency (ER) | payer MEDICARE ==
[~2020-09-05] VITALS: Ht 167.6 cm; Wt 76.8 kg
[~2020-09-05 04:22] MED LIST: ATIVAN1 MG PO; CARDIZEM30 MG PO; GEODON20 MG PO; GEODON40 MG PO; HYDROCODON-ACE1 EA10 PO; Tylenol NG
[2020-09-05 04:24] VITALS: BP 115/80; Ht 167.6 cm; Wt 76.8 kg
[2020-09-05] MEDS ORDERED: HYDROCODON-ACE1 EA10 PO (05:14)
[2020-09-05] MEDS ORDERED: CEPHALEXIN500 M1 PO (05:14)
== END 2020-09-05 05:20 | disposition home or self-care (01) ==
LOC: D.ER 04:22
DX: S61.411A Laceration without foreign body of right hand, initial encounter (principal); W25.XXXA Contact with sharp glass, initial encounter; Y93.9 Activity, unspecified; Y92.9 Unspecified place or not applicable